=== PATIENT | female | born 1955 | race Caucasian/White ===

== ENCOUNTER 2023-04-03 13:15 | Outpatient (RCR) | payer MEDICARE | END 2023-04-06 | disposition home or self-care (01) | LOC: MKS.ESL.PT | DX: M72.2 Plantar fascial fibromatosis (principal) ==

== ENCOUNTER → 2023-06-05 13:58 | Outpatient (RCR) | payer MEDICARE | LOC: MKS.ESL.PT 05-08 10:00 | DX: M72.2 Plantar fascial fibromatosis (principal) ==